=== PATIENT | female | born 1950 | race Caucasian/White ===

== ENCOUNTER 2016-11-20 18:02 | Emergency (ER) | payer BC ==
--- NOTE | 2016-11-20 18:40 | ER Document Report ---
ED Medical Screen (RME) - General Chief Complaint: Shortness Of Breath Stated Complaint: CAN'T KEEP LIQUIDS DOWN Time Seen by Provider: 11/20/16 18:39 Notes: The patient is a 66-year-old female, past medical history stage IV lung cancer, nico esophagitis (on daily diflucan), presents after she is having difficulty swallowing any liquids. Last chemo was at [facility] 10 days ago and she is here on vacation. Lost 6 pounds this week. Patient feels excess secretions in her esophagus. PE: No respiratory distress. No stridor. Tachycardia I have greeted and performed a rapid initial assessment of this patient. A comprehensive ED assessment and evaluation of the patient, analysis of test results and completion of the medical decision making process will be conducted by additional ED providers. TRAVEL OUTSIDE OF THE [place] IN LAST 30 DAYS: No - Related Data Allergies/Adverse Reactions: No Known Allergies Allergy (Unverified 11/20/16 18:11) Past Medical History Renal/ Medical History: Denies: Hx Peritoneal Dialysis Physical Exam - Vital signs Vitals: Temp Pulse Resp BP Pulse Ox 97.5 F 110 H 24 H 126/74 H 99 11/20/16 18:11 11/20/16 18:11 11/20/16 18:11 11/20/16 18:11 11/20/16 18:11 Course - Vital Signs Vital signs: Temp Pulse Resp BP Pulse Ox 97.5 F 110 H 24 H 126/74 H 99 11/20/16 18:11 11/20/16 18:11 11/20/16 18:11 11/20/16 18:11 11/20/16 18:11
[2016-11-20] MEDS ORDERED: NORMAL SALINE 1000 ML 1,000 ML IV ONE ×2 (18:53→20:48)
[2016-11-20] MEDS ORDERED: GLYCOPYRROLATE 1 MG TABLET PO ONE ×2 (18:53→23:42)
--- NOTE | 2016-11-20 19:50 | ER Document Report ---
ED General - General Chief Complaint: Shortness Of Breath Stated Complaint: CAN'T KEEP LIQUIDS DOWN Time Seen by Provider: 11/20/16 18:39 Notes: Patient is a 66-year-old female that comes emergency department for chief complaint of dehydration and excessive esophageal secretions. Patient has stage IV lung cancer, is on chemotherapy in [place] with Dr. Morales, is here on vacation. She states that she can take her pills, can eat food, but every time she tries to drink fluids it seems to get stuck in mucus and she ends up spitting/vomiting it out. She states she came here for fluids. She is on oral Diflucan daily for esophageal candidiasis, she had a barium swallow performed within the past week which showed no stricture or obstruction. Patient denies any fever or chills, reports normal bowel movements, denies any areas of pain. TRAVEL OUTSIDE OF THE [place] IN LAST 30 DAYS: No - Related Data Allergies/Adverse Reactions: No Known Allergies Allergy (Unverified 11/20/16 18:11) Past Medical History - General Information source: Patient, Relative - Social History Smoking Status: Former Smoker Chew tobacco use (# tins/day): No Frequency of alcohol use: None Drug Abuse: None Lives with: Family Family History: Reviewed & Not Pertinent Patient has suicidal ideation: No Patient has homicidal ideation: No Pulmonary Medical History: Reports: Hx COPD Renal/ Medical History: Denies: Hx Peritoneal Dialysis Malignancy Medical History: Reports: Hx Lung Cancer Past Surgical History: Reports: Hx Appendectomy, Hx Hysterectomy, Hx Orthopedic Surgery - R & L knee, wrist, Hx Tonsillectomy - Immunizations Hx Diphtheria, Pertussis, Tetanus Vaccination: Yes Review of Systems - Review of Systems Constitutional: See HPI EENT: No symptoms reported Cardiovascular: No symptoms reported Respiratory: No symptoms reported Gastrointestinal: See HPI Genitourinary: No symptoms reported Female Genitourinary: No symptoms reported Musculoskeletal: No symptoms reported Skin: No symptoms reported Hematologic/Lymphatic: No symptoms reported Neurological/Psychological: No symptoms reported Physical Exam - Vital signs Vitals: Temp Pulse Resp BP Pulse Ox 97.5 F 110 H 24 H 126/74 H 99 11/20/16 18:11 11/20/16 18:11 11/20/16 18:11 11/20/16 18:11 11/20/16 18:11 Interpretation: Normal - General General appearance: Other - slightly pale but in no distress In distress: None - HEENT Head: Normocephalic, Atraumatic Eyes: Normal Conjunctiva: Normal Extraocular movements intact: Yes Eyelashes: Normal Pupils: PERRL Nasal: Normal Mouth/Lips: Normal Mucous membranes: Normal Pharynx: Normal Neck: Normal - Respiratory Respiratory status: No respiratory distress Chest status: Nontender Breath sounds: Normal. No: Decreased air movement, Nonproductive cough, Wheezing Chest palpation: Normal - Cardiovascular Rhythm: Regular, Tachycardia Heart sounds: Normal auscultation, S1 appreciated, S2 appreciated Murmur: No - Abdominal Inspection: Normal Distension: No distension Bowel sounds: Normal Tenderness: Nontender. No: Tender, Guarding Organomegaly: No organomegaly - Back Back: Normal, Nontender. No: Tender - Extremities General upper extremity: Normal inspection, Nontender, Normal color, Normal ROM , Normal temperature General lower extremity: Normal inspection, Nontender, Normal color, Normal ROM , Normal temperature, Normal weight bearing. No: Nori's sign - Neurological Neuro grossly intact: Yes Cognition: Normal Orientation: AAOx4 Gruver Coma Scale Eye Opening: Spontaneous Niraj Coma Scale Verbal: Oriented Gruver Coma Scale Motor: Obeys Commands Niraj Coma Scale Total: 15 Speech: Normal Motor strength normal: LUE, RUE, LLE, RLE Sensory: Normal - Psychological Associated symptoms: Normal affect, Normal mood - Skin Skin Temperature: Warm Skin Moisture: Dry Skin Color: Normal Course - Re-evaluation Re-evalutation: Patient is mildly tachycardic on examination, however she is alert, she has a soft abdomen, she has no signs of distress. She is oriented. After 2 bags of IV fluids patient's tachycardia resolved, she is smiling, she states she feels excellent. Patient was given glycopyrrolate for reduction of secretions, this actually did seem to help over time, patient began sipping liquids and was able to keep this down without any vomiting. Leukocytosis at 27,000. A few bands. Elevated neutrophils. No neutropenia. No fever. No complaints on reevaluation. No signs of infection. Chemistry consistent with dehydration, urinalysis shows some ketones and evidence of dehydration. White blood cells with no nitrates or bacteria. The patient actually had a recent CBC with a white blood cell count of 20+ thousand (within the week), patient states he had white blood cells in her urine every time recently, patient refusing consideration of admission, declined any additional management, she declines me contacting her oncologist, she states that she is ready to leave. Family is supportive of this. They state that they will return if they develop any problems, they asked for prescription of the glycopyrrolate because of the good effect of it tonight, also discussed potential of getting infusions of IV fluids set up here while patient is here because of frequently back home. Family states satisfaction and agreement. - Vital Signs Vital signs: Temp Pulse Resp BP Pulse Ox 97.5 F 110 H 18 140/93 H 99 11/20/16 18:11 11/20/16 18:11 11/21/16 00:01 11/21/16 00:01 11/21/16 00:01 - Laboratory Result Diagrams: 11/20/16 20:04 11/20/16 20:04 Laboratory results interpreted by me: 11/20/16 11/20/16 11/20/16 20:04 20:04 22:30 WBC 27.1 H MCHC 31.6 L RDW 20.9 H Seg Neuts % (Manual) 85 H Band Neutrophils % 6 H Lymphocytes % (Manual) 6 L Monocytes % (Manual) 1 L Metamyelocytes % 1 H Abs Neuts (Manual) 24.9 H Sodium 150.2 H Chloride 111 H BUN 28 H Glucose 117 H Calcium 10.5 H Direct Bilirubin 0.5 H AST 58 H ALT 78 H Alkaline Phosphatase 190 H Urine Protein 30 H Urine Ketones 20 H Ur Leukocyte Esterase SMALL H Urine Ascorbic Acid 40 H Discharge - Discharge Clinical Impression: Dehydration Stage 4 lung cancer Qualifiers: Laterality: unspecified laterality Qualified Code(s): C34.90 - Malignant neoplasm of unspecified part of unspecified bronchus or lung Condition: Stable Disposition: HOME, SELF-CARE Additional Instructions: Take the prescribed medication if needed to help reduce secretions. Consider follow-up with the local oncologist to have been contacted by your oncologist to have infusions for IV fluids (see referral). Return to emergency department for any concerning symptoms including vomiting, fever, dehydration, etc. Prescriptions: Glycopyrrolate [Robinul Forte 1 mg Tablet] 1 mg PO ASDIR PRN #30 tablet PRN Reason: Referrals: JEREMY RODRIGUEZ MD [ACTIVE STAFF] - Follow up as needed
[2016-11-20] MEDS ORDERED: GLYCOPYRROLATE 1 MG TABLET ONE ×2 (19:51→23:52)
[2016-11-20] MEDS ORDERED: ONDANSETRON HCL INJ/PF 4 MG/2 ML SDV IV ONE (19:55)
[2016-11-20] MEDS ORDERED: MORPHINE SULFATE 10 MG/ML INJ IV ONE ×2 (19:55→22:06)
[2016-11-20 20:16] LABS: HEMATOCRIT 42.4 % (36.0-47.0); HEMOGLOBIN 13.4 g/dL (12.0-15.5); HGB HCT DIFFERENCE -2.2; MEAN CORPUSCULAR HEMOGLOBIN 27.4 pg (27.0-33.4); MEAN CORPUSCULAR HGB CONC 31.6 g/dL (32.0-36.0); MEAN CORPUSCULAR VOLUME 87 fl (80-97); RED CELL DISTRIBUTION WIDTH 20.9 % (11.5-14.0); WHITE BLOOD COUNT 27.1 10^3/uL (4.0-10.5)
[2016-11-20 20:24] LABS: ALANINE AMINOTRANSFERASE 78 U/L (9-52); ALBUMIN 4.3 g/dL (3.5-5.0); ALKALINE PHOSPHATASE 190 U/L (38-126); ANION GAP 16 (5-19); ASPARTATE AMINO TRANSFERASE 58 U/L (14-36); BILIRUBIN,DIRECT 0.5 mg/dL (0.0-0.4); BILIRUBIN,TOTAL 0.7 mg/dL (0.2-1.3); BLOOD UREA NITROGEN 28 mg/dL (7-20); CALCIUM 10.5 mg/dL (8.4-10.2); CARBON DIOXIDE 23 mmol/L (22-30); CHLORIDE 111 mmol/L (98-107); CREATININE RESULT 0.76 mg/dL (0.52-1.25); GLUCOSE 117 mg/dL (75-110); LIPASE 43.8 U/L (23-300); POTASSIUM 4.5 mmol/L (3.6-5.0); SODIUM 150.2 mmol/L (137-145); TOTAL PROTEIN 8.2 g/dL (6.3-8.2)
[2016-11-20 20:36] LABS: BAND NEUTROPHILS % (MANUAL) 6 % (3-5); BASOPHILS % (MANUAL) 0 % (0-2); EOSINOPHILS % (MANUAL) 0 % (0-6); LYMPHOCYTES % (MANUAL) 6 % (13-45); TOTAL CELLS COUNTED 100
[2016-11-20 20:37] LABS: TOXIC GRANULATION 1+; TOXIC VACUOLATION PRESENT
[2016-11-20 20:39] LABS: POLYCHROMASIA SLIGHT
[2016-11-20 20:40] LABS: ANISOCYTOSIS 3+; PLATELET CLUMPS PRESENT; POIKILOCYTOSIS SLIGHT; TARGET CELLS SLIGHT; TEAR DROP CELLS SLIGHT
[2016-11-20 22:50] LABS: APPEARANCE,URINE CLOUDY; BILIRUBIN,URINE NEGATIVE (NEGATIVE); GLUCOSE, URINE NEGATIVE (NEGATIVE); KETONES,URINE 20 mg/dL (NEGATIVE); LEUKOCYTE ESTERASE,URINE SMALL (NEGATIVE); NITRITE,URINE NEGATIVE (NEGATIVE); PROTEIN,URINE 30 mg/dL (NEGATIVE); URINE SPECIFIC GRAVITY 1.026; UROBILINOGEN,URINE NEGATIVE mg/dL (<2.0)
[2016-11-21] MEDS ORDERED: GLYCOPYRROLATE 1 MG TABLET ONE (00:10)
[2016-11-21 00:24] VITALS: BP 140/93
== END 2016-11-21 00:25 | disposition home or self-care (01) ==
LOC: ER 18:02
DX: E86.0 Dehydration (principal); C34.90 Malignant neoplasm of unspecified part of unspecified bronchus or lung; B37.81 Candidal esophagitis; J44.9 Chronic obstructive pulmonary disease, unspecified; R00.0 Tachycardia, unspecified; D72.828 Other elevated white blood cell count; Z79.899 Other long term (current) drug therapy; Z87.891 Personal history of nicotine dependence
CPT/HCPCS: 96376; 99284; 96361; 96374; 96375; 36415; 83690; 85025; 80053; 81001; J3490; J2270; J2405; J7030